=== PATIENT | male | born 1930 | race Caucasian/White ===

== ENCOUNTER 2021-07-01 17:01 | Emergency (ER) | payer MEDICARE, BC ==
[~2021-07-01] VITALS: Ht 172.7 cm; Wt 73.0 kg
--- NOTE | 2021-07-01 17:01 | NUR ---
BIBS RA 80 FROM POST OFFICE AFTER A SYNCOPAL EPIDOSDE, SKIN TEAR NOTED ON L ELBOW. PT ATTACHED TO MONITOR. NO SHORTNESS OF BREATH NOTED. DR ADRIAN AT BEDSIDE
[2021-07-01] MEDS ORDERED: ISOS120T13 PO (17:37)
[2021-07-01] MEDS ORDERED: TAMS-12 PO (17:37)
[2021-07-01] MEDS ORDERED: AMLO2.5T4 PO (17:37)
[2021-07-01] MEDS ORDERED: FEBU40TA3 PO (17:37)
[2021-07-01] MEDS ORDERED: VIT1TABL46 PO (17:37)
[2021-07-01] MEDS ORDERED: RIVA10TA PO (17:37)
[2021-07-01 17:41] LABS: BASOPHILS # (AUTO) 0.1 K/uL (0.0-0.2); BASOPHILS % (AUTO) 1.1 % (0.0-2.0); EOSINOPHILS % (AUTO) 2.8 % (0.0-6.0); HEMATOCRIT 33 % (39-51); HEMOGLOBIN 11.1 g/dL (13.5-17.5); LYMPHOCYTES # (AUTO) 2.9 K/uL (0.8-4.8); LYMPHOCYTES % (AUTO) 36.7 % (20.0-44.0); MEAN CORPUSCULAR HGB CONC 34 g/dl (31.0-36.0); MEAN CORPUSCULAR VOLUME 101 fL (80-96); MONOCYTES # (AUTO) 0.6 K/uL (0.1-1.30); MONOCYTES % (AUTO) 7.2 % (2.0-12.0); NEUTROPHILS # (AUTO) 4.1 K/uL (1.8-8.9); NEUTROPHILS % (AUTO) 52.2 % (43.0-81.0); PLATELET COUNT (AUTO) 218 K/uL (150-450); RED BLOOD CELL COUNT(AUTO) 3.26 MIL/uL (4.5-6.0); WHITE BLOOD COUNT (AUTO) 7.8 K/uL (4.3-11.0)
[2021-07-01 17:55] LABS: CALCIUM, SERUM 8.3 mg/dL (8.5-10.1); CARBON DIOXIDE 27 mmol/L (21-32); CHLORIDE 105 mmol/L (98-107); CREATININE 4.1 mg/dL (0.6-1.3); GLUCOSE 106 mg/dL (74-106); SODIUM SERUM 140 mmol/L (136-145)
[2021-07-01 18:02] LABS: UREA NITROGEN, BLOOD 93 mg/dL (7-18)
--- NOTE | 2021-07-01 18:37 | NUR ---
Dr Bae at talking to the patient and his .
--- NOTE | 2021-07-01 19:08 | NUR ---
COVID SWAB DONE AND SENT TO LAB
--- NOTE | 2021-07-01 19:35 | NUR ---
RECEIVED REPORT FROM VICKEY ROBERT FOR [facility]
--- NOTE | 2021-07-01 19:36 | NUR ---
EPIC PANEL PAGED
--- NOTE | 2021-07-01 19:40 | NUR ---
RECEIVED REPORT FROM VICKEY ROBERT FOR [facility]
--- NOTE | 2021-07-01 19:40 | NUR ---
PT IS RESTING COMFORTABLY IN BED, DENIES ANY PAIN AT THIS TIME. PT AND HIS VERBALIZED WANTING TO GO HOME, BUT WILL LIKE TO WAIT FOR PENDING LAB RESULTS IN ORDER TO MAKE A MORE INFORMED DECISION. MADE AWARE. WILL CONTINUE TO MONITOR.
[2021-07-01] MEDS ORDERED: MAG HYDROX/AL HYDROX/SIMETH 30 ML UDC PO PRN (20:00)
[2021-07-01] MEDS ORDERED: MAGNESIUM HYDROXIDE 30 ML UDC PO PRN (20:00)
[2021-07-01] MEDS ORDERED: hydrALAZINE HCL IV 20 MG VIAL IV PRN (20:00)
[2021-07-01] MEDS ORDERED: Z GUARD REMEDY 4 OZ OINT TP PRN (20:00)
[2021-07-01] MEDS ORDERED: MORPHINE SULFATE INJ 2 MG/ML DISP.SYRIN IV PRN (20:00)
[2021-07-01] MEDS ORDERED: ACETAMINOPHEN 325 MG TABLET PO PRN (20:00)
[2021-07-01] MEDS ORDERED: ONDANSETRON HCL/PF 4 MG/2 ML VIAL IVP PRN (20:00)
--- NOTE | 2021-07-01 20:07 | NUR ---
Ivett vivar in [facility] - 07/01/21 at 2104 by NOÉ ROOM [id number] MS
--- NOTE | 2021-07-01 21:04 | NUR ---
Patient does not wish to proceed with medical care recommended by Riaz Leavitt. Patient given information related to possible complications, up to and including , which could occur as a result of leaving the hospital at this time. Patient verbalizes understanding of risks involved due to leaving against medical advice. Patient has signed AMA form.
[2021-07-01 21:06] VITALS: BP 133/72
[2021-07-01] MEDS ORDERED: TAMSULOSIN 0.4 MG CAP.SR.24H PO SCH (22:00)
[2021-07-02] MEDS ORDERED: Medication Not On Formulary EA (Febuxostat 40 MG) PO SCH (09:00)
[2021-07-02] MEDS ORDERED: ISOSORBIDE MONONITRATE 60 MG TAB.SR.24H PO SCH (09:00)
[2021-07-02] MEDS ORDERED: RIVAROXABAN 10 MG TABLET PO SCH (09:00)
[2021-07-02] MEDS ORDERED: VIT B CMPLX 3/FA/VIT C/BIOTIN 1 TAB TABLET PO SCH (09:00)
[2021-07-02] MEDS ORDERED: AMLODIPINE BESYLATE 2.5 MG TABLET PO SCH (09:00)
== END 2021-07-01 21:04 | disposition left against medical advice (07) ==
LOC: ER 17:05
DX: R55 Syncope and collapse (principal); S51.012A Laceration without foreign body of left elbow, initial encounter; W18.39XA Other fall on same level, initial encounter; Y92.242 Post office as the place of occurrence of the external cause; I11.9 Hypertensive heart disease without heart failure; Z79.01 Long term (current) use of anticoagulants; Z79.899 Other long term (current) drug therapy; Z53.29 Procedure and treatment not carried out because of patient's decision for other reasons; Z20.822 Contact with and (suspected) exposure to COVID-19
CPT/HCPCS: 36415; 71045-TC; 80048-TC; 83605-TC; 83880; 84484-TC; 85025-TC; C9803

== ENCOUNTER 2021-12-13 14:24 | Emergency (ER) | payer MEDICARE, BC ==
[~2021-12-13] VITALS: Ht 172.7 cm; Wt 68.5 kg
[~2021-12-13 14:24] MED LIST: AMLO2.5T4 PO; FEBU40TA3 PO; ISOS120T13 PO; RIVA10TA PO; TAMS-12 PO; VIT1TABL46 PO
--- NOTE | 2021-12-13 14:47 | NUR ---
BIB RA 97 FROM HOME,FELT WEAK WHILE TAKING A WALK OUTSIDE,ASSISTED TO THE GROUND BY CAREGIVER,BLOOD SUGAR 120. EMS STATED HIS BLOOD PRESSURE WAS LOW PRIOR TO ARRIVAL, 1L GIVEN LEARNING DESIGN SPECIALIST. BLOOD PRESSURE 136/74. PT IS A&OX4. ATTACHED TO MONITOR. AWAITING MD ORDERS.
[2021-12-13] MEDS ORDERED: IV NS 0.9% 500 ML BAG IV ONE (15:00)
[2021-12-13 15:22] LABS: BASOPHILS # (AUTO) 0.1 K/uL (0.0-0.2); EOSINOPHILS % (AUTO) 2.4 % (0.0-6.0); HEMATOCRIT 32 % (39-51); HEMOGLOBIN 10.9 g/dL (13.5-17.5); LYMPHOCYTES # (AUTO) 0.9 K/uL (0.8-4.8); LYMPHOCYTES % (AUTO) 13.7 % (20.0-44.0); MEAN CORPUSCULAR HGB CONC 34 g/dl (31.0-36.0); MEAN CORPUSCULAR VOLUME 101 fL (80-96); MONOCYTES # (AUTO) 0.5 K/uL (0.1-1.30); MONOCYTES % (AUTO) 7.8 % (2.0-12.0); NEUTROPHILS # (AUTO) 4.7 K/uL (1.8-8.9); NEUTROPHILS % (AUTO) 75.1 % (43.0-81.0); PLATELET COUNT (AUTO) 177 K/uL (150-450); RED BLOOD CELL COUNT(AUTO) 3.18 MIL/uL (4.5-6.0); WHITE BLOOD COUNT (AUTO) 6.3 K/uL (4.3-11.0)
[2021-12-13] MEDS ORDERED: BROM5DRO3 LEFTEYE (15:24)
[2021-12-13] MEDS ORDERED: MAGN400T26 PO (15:24)
[2021-12-13] MEDS ORDERED: AMIO100T4 PO (15:24)
[2021-12-13] MEDS ORDERED: DOCU-141 PO (15:24)
[2021-12-13] MEDS ORDERED: TAMS-12 PO (15:26)
[2021-12-13 15:52] LABS: ALANINE AMINOTRANSFERASE 21 U/L (12-78); ALBUMIN 2.5 g/dL (3.4-5.0); ALKALINE PHOSPHATASE 59 U/L (46-116); ASPARTATE AMINOTRANSFERASE 15 U/L (15-37); BILIRUBIN,DIRECT 0.1 mg/dL (0.0-0.2); BILIRUBIN,TOTAL 0.3 mg/dL (0.2-1.0); CALCIUM, SERUM 8.2 mg/dL (8.5-10.1); CARBON DIOXIDE 29 mmol/L (21-32); CHLORIDE 101 mmol/L (98-107); CREATININE 4.3 mg/dL (0.6-1.3); GLUCOSE 109 mg/dL (74-106); POTASSIUM 3.5 mmol/L (3.5-5.1); SODIUM SERUM 137 mmol/L (136-145); TOTAL PROTEIN, SERUM 5.6 g/dL (6.4-8.2); UREA NITROGEN, BLOOD 70 mg/dL (7-18)
--- NOTE | 2021-12-13 16:40 | NUR ---
IV removed. Catheter intact and site benign. Pressure and 4x4 applied to site. No bleeding noted.Patient discharged to home in stable condition. Written and verbal after care instructions given. Patient verbalizes understanding of instruction.
[2021-12-13 16:41] VITALS: BP 135/61
== END 2021-12-13 16:41 | disposition home or self-care (01) ==
LOC: ER 14:26
DX: R55 Syncope and collapse (principal); I10 Essential (primary) hypertension; Z79.899 Other long term (current) drug therapy
CPT/HCPCS: 99285; 71045; 93005; 85025; 80048; 80076; 36415; 84484; J7040